=== PATIENT | male | born 1995 | race Caucasian/White ===

== ENCOUNTER 2018-12-17 13:54 | Emergency (ER) | payer OTHER ==
[~2018-12-17] VITALS: Ht 177.8 cm; Wt 112.9 kg
[~2018-12-17 13:54] MED LIST: ACET-141 PO; IBUP-1561 PO
[2018-12-17 14:01] VITALS: BP 150/69; PULSE 98; RESP 20; Ht 177.8 cm; Wt 112.9 kg
== END 2018-12-17 15:35 | disposition home or self-care (01) ==
LOC: E/R 13:54
DX: M54.42 Lumbago with sciatica, left side (principal)
CPT/HCPCS: 72100; Z7502